=== PATIENT | female | born 1995 | race Two or more races ===

== ENCOUNTER 2022-12-22 00:03 | Emergency (ER) | payer BC ==
[~2022-12-22] VITALS: Ht 162.6 cm; Wt 118.2 kg
[2022-12-22 00:20] VITALS: BP 137/90
[2022-12-22 01:17] LABS: Urine Bacteria MANY /hpf (None Seen); Urine Blood Negative /uL (Negative); Urine Hyaline Cast FEW /lpf (0 - 2); Urine Mucus FEW (None Seen); Urine Specific Gravity 1.009 (1.001-1.035); Urine WBC 42 /hpf (0 - 5)
[2022-12-22] MEDS ORDERED: cefTRIAXone SOD 1,000 MG VL IM ONE (03:30)
[2022-12-22] MEDS ORDERED: AUG875T PO (03:49)
[2022-12-22] MEDS ORDERED: COR10OTS OT (03:49)
== END 2022-12-22 03:50 | disposition left against medical advice (07) ==
LOC: ER 00:03
DX: N39.0 Urinary tract infection, site not specified (principal); R50.9 Fever, unspecified; R51.9 Headache, unspecified; H66.93 Otitis media, unspecified, bilateral; Z53.29 Procedure and treatment not carried out because of patient's decision for other reasons; Z20.822 Contact with and (suspected) exposure to COVID-19
CPT/HCPCS: 36415; 70450; 71045; 81001; 81025; 87426; 96372; 99285; J0696